=== PATIENT | male | born 1995 | race Caucasian/White ===

== ENCOUNTER 2022-08-06 11:45 | Emergency (ER) | payer OTHER ==
[~2022-08-06] VITALS: Ht 175.3 cm; Wt 74.8 kg
[2022-08-06 11:53] VITALS: BP 129/81
--- NOTE | 2022-08-06 11:59 | NUR ---
PT TAKEN TO XRAY VIA WC
[2022-08-06] MEDS ORDERED: NAPR-1704 PO (13:35)
--- NOTE | 2022-08-06 13:37 | NUR ---
jasmyn wrap applied to L knee. + cms
[2022-08-06 13:48] VITALS: BP 129/81
--- NOTE | 2022-08-06 13:48 | NUR ---
Patient discharged with v/s stable. Written and verbal after care instructions given and explained. Patient alert, oriented and verbalized understanding of instructions. Ambulatory with steady gait. All questions addressed prior to discharge. ID band removed. Patient advised to follow up with PMD. Rx of naproxen (sent) given. Patient educated on indication of medication including possible reaction and side effects. Opportunity to ask questions provided and answered.
== END 2022-08-06 13:48 | disposition home or self-care (01) ==
LOC: MED 11:45
DX: M25.562 Pain in left knee (principal)
CPT/HCPCS: 73562; 99283

== ENCOUNTER 2022-12-03 12:30 | Emergency (ER) | payer OTHER ==
[~2022-12-03] VITALS: Ht 180.3 cm; Wt 86.2 kg
[~2022-12-03 12:30] MED LIST: NAPR-1704 PO
[2022-12-03 12:47] VITALS: BP 134/80
--- NOTE | 2022-12-03 13:13 | NUR ---
TO CHAIR A, NO ACUTE DISTRESS. NO SOB
[2022-12-03 13:50] LABS: BASOPHILS % (AUTO) 0.4 % (0.0-2.0); EOSINOPHILS % (AUTO) 0.2 % (0.0-4.0); HEMATOCRIT 43.4 % (36-52); HEMOGLOBIN 14.5 g/dL (12.0-18.0); LYMPHOCYTES # (AUTO) 1.8 K/uL (2.0-11.5); LYMPHOCYTES % (AUTO) 26.2 % (20.5-51.1); MEAN CORPUSCULAR HEMOGLOBIN 29 pg (27-31); MEAN CORPUSCULAR HGB CONC 33 g/dL (33-37); MEAN CORPUSCULAR VOLUME 85.8 fL (80-94); MONOCYTES # (AUTO) 0.4 K/uL (0.8-1.0); MONOCYTES % (AUTO) 6.3 % (1.7-9.3); NEUTROPHILS # (AUTO) 4.5 K/uL (1.8-7.7); NEUTROPHILS % (AUTO) 66.9 % (42.2-75.2); PLATELET COUNT (AUTO) 271 K/uL (140-450); RED BLOOD CELL COUNT(AUTO) 5.06 MIL/uL (4.20-6.10); WHITE BLOOD COUNT (AUTO) 6.8 K/uL (4.8-10.8)
[2022-12-03 14:31] LABS: ANION GAP 11.3 (8-16); ASPARTATE AMINOTRANSFERASE 19 U/L (15-37); CARBON DIOXIDE 29.7 mmol/L (21-32); CHLORIDE 106 mmol/L (98-107); CREATININE 1.1 mg/dL (0.6-1.3); GFR ARICAN-AMERICAN 103 mL/min (>90); GLUCOSE 102 mg/dL (74-106); SODIUM SERUM 143 mmol/L (136-145); TOTAL BILIRUBIN 0.7 mg/dL (0.0-1.0); UREA NITROGEN, BLOOD 9 mg/dL (7-18)
[2022-12-03] MEDS ORDERED: IBUP-2213 PO (14:37)
[2022-12-03 15:12] VITALS: BP 130/90
--- NOTE | 2022-12-03 15:12 | NUR ---
Patient discharged with v/s stable. Written and verbal after care instructions given and explained. Patient verbalized understanding. Ambulatory with steady gait. All questions addressed prior to discharge. Advised to follow up with PMD. WITH NO ACUTE DISTRESS. AWAKE AND ALERT. NO SOB, STABLE FOR D/C HOME. PT. INSTRUCTED TO FOLLOW UP WITH MEDITATION AND WITH RELAXATION TECHNIQUES TO MANAGE STRESS. HE VERBALIZED UNDERSTANDING
== END 2022-12-03 15:12 | disposition home or self-care (01) ==
LOC: MED 12:30
DX: R07.9 Chest pain, unspecified (principal); Z79.899 Other long term (current) drug therapy
CPT/HCPCS: 36415; 71045; 80053; 84484; 85025; 93005; 99285